=== PATIENT | female | born 1995 | race African-American/Black ===

== ENCOUNTER 2020-10-26 06:41 | Emergency (ER) | payer MEDICAID ==
[~2020-10-26] VITALS: Ht 154.9 cm; Wt 45.4 kg
[2020-10-26 06:47] VITALS: BP 122/81
[2020-10-26] MEDS ORDERED: PRED20TA PO (07:12)
[2020-10-26] MEDS ORDERED: ALBU8.5H8 INH (07:12)
== END 2020-10-26 07:22 | disposition home or self-care (01) ==
LOC: ER 06:49
DX: J45.909 Unspecified asthma, uncomplicated (principal); Z91.010 Allergy to peanuts; Z91.018 Allergy to other foods; Z79.899 Other long term (current) drug therapy

== ENCOUNTER 2020-10-26 23:26 | Emergency (ER) | payer MEDICAID ==
[~2020-10-26] VITALS: Ht 154.9 cm; Wt 45.4 kg
[2020-10-26 23:26] VITALS: BP 122/67
[~2020-10-26 23:26] MED LIST: ALBU8.5H8 INH; PRED20TA PO
--- NOTE | 2020-10-27 | NUR ---
PT ELOPED FROM ED, PT DID NOT WANT TO WAIT FOR ACI.
== END 2020-10-27 03:26 | disposition left against medical advice (07) ==
LOC: ER 23:27
DX: J45.909 Unspecified asthma, uncomplicated (principal); Z71.1 Person with feared health complaint in whom no diagnosis is made; Z86.16 Personal history of COVID-19; Z91.010 Allergy to peanuts; Z91.018 Allergy to other foods; Z79.899 Other long term (current) drug therapy